=== PATIENT | female | born 1970 | race American Indian/Alaskan Native ===

== ENCOUNTER 2018-09-01 14:05 | Emergency (ER) | payer BC ==
[2018-09-01] MEDS ORDERED: Sodium Chloride 0.9% 1,000 ML IV ONE (14:27)
[2018-09-01 14:42] LABS: BASO % 0.3 % (0.0-2.0); EOS # 0.2 K/uL (0.0-0.7); EOS % 2.4 % (0.0-4.0); HEMOGLOBIN 13.9 g/dL (11.0-16.0); LYMPH % 26.6 % (20.0-40.0); MEAN CELL VOLUME 90.6 fL (81.0-99.0); MEAN CORPUSCULAR HEMOGLOBIN 31.4 pg (27.0-31.0); MEAN CORPUSCULAR HGB CONC 34.7 g/dL (33.0-37.0); MEAN PLATELET VOLUME 7.8 fL (7.2-11.7); MONO # 0.5 K/uL (0.0-0.8); MONO % 6.8 % (0.0-10.0); NEUT # 4.7 K/uL (1.8-7.0); NEUT % 63.9 % (50.0-75.0); RBC 4.43 Mil/uL (3.80-5.20); WHITE BLOOD COUNT 7.3 K/uL (4.8-10.8)
[2018-09-01] MEDS ORDERED: Sodium Chloride 0.9% 1,000 ML ONE (14:43)
[2018-09-01 14:55] LABS: ALB/GLOB RATIO 1.2 (1.0-2.1); ALBUMIN 4.5 g/dL (3.5-5.0); ALT/SGPT 18 U/L (9-52); AST/SGOT 26 U/L (14-36); BLOOD UREA NITROGEN 17 mg/dL (7-17); CALCIUM 9.3 mg/dl (8.6-10.4); GFR NON-AFRICAN AMERICAN > 60
[2018-09-01 14:56] LABS: ACETAMINOPHEN < 10.0 ug/mL (10.0-30.0); SALICYLATE < 1.0 mg/dL 1
[2018-09-01 15:06] LABS: HCG,QUALITATIVE URINE NEGATIVE (NEGATIVE); SQUAMOUS EPITHIAL 1 /hpf (0-5); URINE BILIRUBIN NEGATIVE (NEGATIVE); URINE BLOOD 2+ (NEGATIVE); URINE CLARITY Clear (Clear); URINE COLOR Straw (YELLOW); URINE GLUCOSE (UA) NORMAL (Normal); URINE LEUKOCYTE ESTERASE NEG Leu/uL (Negative); URINE PROTEIN NEGATIVE (NEGATIVE); URINE UROBILINOGEN NORMAL mg/dL (0.2-1.0)
[2018-09-01 15:29] LABS: BARBITURATES, UR NEGATIVE (NEGATIVE); BENZODIAZEPINES, UR NEGATIVE (NEGATIVE); OPIATES, UR NEGATIVE (NEGATIVE); PHENCYCLIDINE, UR NEGATIVE (NEGATIVE)
--- NOTE | 2018-09-01 15:50 | C.PDOC ---
History Of Present Illness 47 year old female presents to the ED for evaluation of nausea and discomfort status post accidental ingestion of detergent bleach today. Reports she transferred bleach to a water bottle to bring to the laundry and put it in her purse. States she took her medications and accidentally drank 2 gulps of bleach from the bottle thinking it was water. Denies any chest pain, shortness of breath, vomiting, abdominal pain, or any other symptoms. Time Seen by Provider: 09/01/18 14:13 Chief Complaint (Nursing): Substance Abuse History Per: Patient History/Exam Limitations: no limitations Onset/Duration Of Symptoms: Hrs Current Symptoms Are (Timing): Still Present Suicide/Self Injury Attempted (Context): None Modifying Factor(s): None Past Medical History Reviewed: Historical Data, Nursing Documentation, Vital Signs Vital Signs: Last Vital Signs Temp 98.6 F 09/01/18 14:17 Pulse 91 H 09/01/18 14:17 Resp 18 09/01/18 14:17 BP 130/92 H 09/01/18 14:17 Pulse Ox 96 09/01/18 14:17 Primary Care Provider: Alexi Alicea - Medical History PMH: Asthma Surgical History: Family History: States: No Known Family Hx - Social History Hx Alcohol Use: No Hx Substance Use: No - Immunization History Hx Tetanus Toxoid Vaccination: No Hx Influenza Vaccination: No Hx Pneumococcal Vaccination: No Review Of Systems Cardiovascular: Negative for: Chest Pain Respiratory: Negative for: Shortness of Breath Gastrointestinal: Positive for: Nausea. Negative for: Vomiting, Abdominal Pain Physical Exam - Physical Exam Appears: Non-toxic, No Acute Distress Skin: Warm, Dry, No Rash Head: Normacephalic Eye(s): bilateral: Normal Inspection, PERRL, EOMI Nose: Normal Oral Mucosa: Moist Neck: Supple Chest: Symmetrical Cardiovascular: Rhythm Regular Respiratory: Normal Breath Sounds, No Rales, No Rhonchi, No Wheezing, Other (speaking full sentences, no stridor ) Gastrointestinal/Abdominal: Soft, No Tenderness Neurological/Psych: Oriented x3, Normal Speech Gait: Steady ED Course And Treatment - Laboratory Results Result Diagrams: 09/01/18 14:35 09/01/18 14:35 Lab Results: Total Bilirubin 0.4 mg/dL (0.2-1.3) 09/01/18 14:35 AST 26 U/L (14-36) 09/01/18 14:35 ALT 18 U/L (9-52) 09/01/18 14:35 Alkaline Phosphatase 68 U/L (38-126) 09/01/18 14:35 Total Protein 8.4 g/dL (6.3-8.3) H 09/01/18 14:35 Albumin 4.5 g/dL (3.5-5.0) 09/01/18 14:35 Globulin 3.9 gm/dL (2.2-3.9) 09/01/18 14:35 Albumin/Globulin Ratio 1.2 (1.0-2.1) 09/01/18 14:35 Urine Color Straw (YELLOW) 09/01/18 14:57 Urine Clarity Clear (Clear) 09/01/18 14:57 Urine pH 5.0 (5.0-8.0) 09/01/18 14:57 Ur Specific [place] 1.005 (1.003-1.030) 09/01/18 14:57 Urine Protein Negative mg/dL (NEGATIVE) 09/01/18 14:57 Urine Glucose (UA) Normal mg/dL (Normal) 09/01/18 14:57 Urine Ketones Negative mg/dL (NEGATIVE) 09/01/18 14:57 Urine Blood 2+ (NEGATIVE) H 09/01/18 14:57 Urine Nitrate Negative (NEGATIVE) 09/01/18 14:57 Urine Bilirubin Negative (NEGATIVE) 09/01/18 14:57 Urine Urobilinogen Normal mg/dL (0.2-1.0) 09/01/18 14:57 Ur Leukocyte Esterase Neg Cadence/uL (Negative) 09/01/18 14:57 Urine WBC (Auto) 1 /hpf (0-5) 09/01/18 14:57 Urine RBC (Auto) 3 /hpf (0-3) 09/01/18 14:57 Ur Squamous Epith Cells 1 /hpf (0-5) 09/01/18 14:57 Urine HCG, Qual Negative (NEGATIVE) 09/01/18 14:57 Urine HCG, Qual Negative (NEGATIVE) 09/01/18 14:57 O2 Sat by Pulse Oximetry: 96 (RA) Pulse Ox Interpretation: Normal Progress Note: Patient treated with Zofran, Protonix and IV fluids. Blood and urine collected and sent to the lab for analysis. Poison control was called - recommended to keep patient for observation. Disposition Counseled Patient/Family Regarding: Diagnosis, Need For Followup, Rx Given - Disposition Referrals: Alexi Alicea MD [Medical Doctor] - Disposition: HOME/ ROUTINE Disposition Time: 16:35 Condition: STABLE Additional Instructions: FOLLOW UP WITH YOUR DOCTOR IN 1-2 DAYS USE MEDICATIONS NEEDED RETURN TO EMERGENCY ROOM IF YOU HAVE ANY CONCERNING SYMPTOMS SEGUIR CON SEQUEIRA MDICO EN 1-2 COCHRAN UTILICE MEDICAMENTOS REGULO SE NECESITE VUELVA A LA VERONICA DE EMERGENCIA SI TIENE ALGUNA INFORMACIN SOBRE LOS SNTOMAS Prescriptions: Famotidine [Pepcid] 20 mg PO BID PRN #15 tab PRN Reason: abdominal Ondansetron ODT [Zofran ODT] 1 odt PO BID PRN #15 odt PRN Reason: Nausea/Vomiting Instructions: Chemical Ingestion (DC) Forms: [employer] (Syrian) Print Language: CITIZEN OF [place] - Clinical Impression Clinical Impression: Accidental ingestion of caustic alkali, Ingestion of bleach - Scribe Statement The provider has reviewed the documentation as recorded by the Scribe Perlita Sloan All medical record entries made by the Sundayibdaphne were at my direction and personally dictated by me. I have reviewed the chart and agree that the record accurately reflects my personal performance of the history, physical exam, medical decision making, and the department course for this patient. I have also personally directed, reviewed, and agree with the discharge instructions and disposition.
[2018-09-01 16:37] VITALS: BP 126/83; PULSE 55; RESP 16; TEMP 98.8
[2018-09-01 16:43] VITALS: O2SAT 96
== END 2018-09-01 16:52 | disposition home or self-care (01) ==
LOC: C.ER 14:05
DX: T54.3X1A Toxic effect of corrosive alkalis and alkali-like substances, accidental (unintentional), initial encounter (principal); Y92.9 Unspecified place or not applicable
CPT/HCPCS: 80053; 81001; 84703; 85025; 96361; 96374; 96375; 99284; C9113; G0480; J2405; J7030